=== PATIENT | male | born 1965 | race Caucasian/White ===

== ENCOUNTER → 2021-09-17 | Outpatient (CLI) | payer OTHER | LOC: LAB 18:31 | DX: Z20.822 Contact with and (suspected) exposure to COVID-19 (principal) ==

== ENCOUNTER → 2024-03-28 | Day surgery (SDC) | payer OTHER ==
[~2024-03-28] MED LIST: Lidocaine PF 2% (20 MG/ML) 2 ML VIAL ONE
== END | disposition home or self-care (01) ==
LOC: MSO 07-13 10:53
DX: Z12.11 Encounter for screening for malignant neoplasm of colon (principal)
CPT/HCPCS: 00812; J2704; J7120

== ENCOUNTER 2024-09-19 21:03 | Observation (INO) | payer OTHER ==
[~2024-09-19] VITALS: Ht 190.5 cm; Wt 134.5 kg
[2024-09-19] MEDS ORDERED: SIMVASTATIN20 M1 PO (21:35)
[2024-09-19 21:59] LABS: ALBUMIN 4.3 g/dL (3.5-5.0); BASO # 0.04 K/mm3 (0.02-0.10); EOS # 0.18 K/mm3 (0.04-0.40); EOS % 2.2 % (0.0-4.0); HEMATOCRIT 48.4 % (42.0-52.0); HEMOGLOBIN 15.7 g/dL (13.5-18.0); LYMPH# 1.29 K/mm3 (1.50-4.00); MEAN CELL VOLUME 91 fl (78-100); MEAN CORPUSCULAR HEMOGLOBIN 29 pg (27-31); MEAN CORPUSCULAR HGB CONC 32 g/dL (33-37); MEAN PLATELET VOLUME 9.8 fl (7.4-10.4); MONO # 0.68 K/mm3 (0.20-0.80); NEU # 6.01 K/mm3 (1.40-6.50); PLATELET COUNT 288 K/mm3 (130-400); RED BLOOD COUNT 5.35 M/mm3 (4.20-5.60); RED CELL DISTRIBUTION WIDTH 12.8 % (11.5-14.5); WHITE BLOOD COUNT 8.2 K/mm3 (4.8-10.8)
[2024-09-19 22:00] LABS: CALCIUM 9.8 mg/dL (8.3-10.5)
[2024-09-19] MEDS ORDERED: NS 1,000 ML IV SCH (22:00)
[2024-09-19] MEDS ORDERED: cefTRIAXone 1 G in Water For Injection,Sterile 10 ML IV SCH (22:00)
[2024-09-19 22:03] LABS: TOTAL BILIRUBIN 0.7 mg/dL (0.2-1.2)
[2024-09-19] MEDS ORDERED: Ibuprofen 200 MG TAB PO PRN (22:15)
[2024-09-19] MEDS ORDERED: fentaNYL 100 MCG/2 ML VIAL IV PRN (22:15)
[2024-09-19] MEDS ORDERED: Morphine 4 MG/ML VIAL IV PRN (22:45)
[2024-09-19] MEDS ORDERED: Vancomycin 2 G in NS 500 ML IV ONE (22:45)
[2024-09-19 23:53] VITALS: BP 127/74
[2024-09-20 03:17] VITALS: BP 138/87
[2024-09-20 06:23] LABS: BASO # 0.03 K/mm3 (0.02-0.10); EOS # 0.17 K/mm3 (0.04-0.40); EOS % 1.9 % (0.0-4.0); HEMATOCRIT 42.4 % (42.0-52.0); HEMOGLOBIN 13.9 g/dL (13.5-18.0); LYMPH# 1.15 K/mm3 (1.50-4.00); MEAN CELL VOLUME 92 fl (78-100); MEAN CORPUSCULAR HEMOGLOBIN 30 pg (27-31); MEAN CORPUSCULAR HGB CONC 33 g/dL (33-37); MEAN PLATELET VOLUME 9.9 fl (7.4-10.4); MONO # 0.78 K/mm3 (0.20-0.80); NEU # 6.83 K/mm3 (1.40-6.50); PLATELET COUNT 255 K/mm3 (130-400); RED BLOOD COUNT 4.63 M/mm3 (4.20-5.60)
[2024-09-20 06:36] LABS: ALBUMIN 3.7 g/dL (3.5-5.0)
[2024-09-20 06:41] LABS: TOTAL BILIRUBIN 0.8 mg/dL (0.2-1.2)
[2024-09-20 07:30] VITALS: BP 145/89
[2024-09-20] MEDS ORDERED: HYDROcodone/Acetaminophen 7.5-325 MG TAB PO PRN (08:00)
[2024-09-20] MEDS ORDERED: oxyCODONE/Acetaminophen 5-325 MG TAB PO PRN (08:00)
[2024-09-20] MEDS ORDERED: Ketorolac 30 MG/ML VIAL IV SCH ×2 (08:18→15:25)
[2024-09-20] MEDS ORDERED: NS IV SCH (09:00)
[2024-09-20] MEDS ORDERED: VANCOMYCIN HCL IV SCH (09:00)
[2024-09-20 15:10] VITALS: BP 134/84
[2024-09-20 20:08] VITALS: BP 137/87
[2024-09-20] MEDS ORDERED: cefTRIAXone 1 G in Water For Injection,Sterile 10 ML IV SCH (21:00)
[2024-09-20 23:00] VITALS: BP 115/71
[2024-09-21 03:52] VITALS: BP 129/78
[2024-09-21 06:15] LABS: BASO # 0.04 K/mm3 (0.02-0.10); EOS # 0.25 K/mm3 (0.04-0.40); EOS % 3.4 % (0.0-4.0); HEMATOCRIT 42.4 % (42.0-52.0); HEMOGLOBIN 13.9 g/dL (13.5-18.0); LYMPH# 1.06 K/mm3 (1.50-4.00); MEAN CELL VOLUME 92 fl (78-100); MEAN CORPUSCULAR HEMOGLOBIN 30 pg (27-31); MEAN CORPUSCULAR HGB CONC 33 g/dL (33-37); MEAN PLATELET VOLUME 9.8 fl (7.4-10.4); MONO # 0.71 K/mm3 (0.20-0.80); PLATELET COUNT 237 K/mm3 (130-400); RED BLOOD COUNT 4.63 M/mm3 (4.20-5.60); RED CELL DISTRIBUTION WIDTH 12.9 % (11.5-14.5); WHITE BLOOD COUNT 7.3 K/mm3 (4.8-10.8)
[2024-09-21 06:24] LABS: ALBUMIN 3.5 g/dL (3.5-5.0)
[2024-09-21 06:26] LABS: CALCIUM 8.9 mg/dL (8.3-10.5)
[2024-09-21 06:27] LABS: TOTAL PROTEIN 5.6 g/dL (6.4-8.3)
[2024-09-21 06:29] LABS: TOTAL BILIRUBIN 0.8 mg/dL (0.2-1.2)
[2024-09-21 07:27] VITALS: BP 128/76
[2024-09-21] MEDS ORDERED: Sulfamethoxazole/Trimethoprim 800-160 MG TAB PO SCH (09:00)
[2024-09-21] MEDS ORDERED: Acetaminophen 325 MG TAB PO PRN (09:45)
[2024-09-21 11:03] VITALS: BP 132/78; BP_SYST 131
[2024-09-21 14:57] VITALS: BP 130/80
[2024-09-21] MEDS ORDERED: Clindamycin 150 MG CAP PO SCH (17:57)
[2024-09-21] MEDS ORDERED: Bisacodyl 5 MG TAB PO SCH (19:19)
[2024-09-21 19:25] VITALS: BP 132/73
[2024-09-21] MEDS ORDERED: Ketorolac 30 MG/ML VIAL IV PRN (22:30)
[2024-09-21 23:14] VITALS: BP 135/89
[2024-09-22 03:00] VITALS: BP 131/84
[2024-09-22 05:38] LABS: BASO # 0.04 K/mm3 (0.02-0.10); EOS # 0.29 K/mm3 (0.04-0.40); EOS % 4.2 % (0.0-4.0); HEMATOCRIT 42.6 % (42.0-52.0); HEMOGLOBIN 13.9 g/dL (13.5-18.0); LYMPH# 1.34 K/mm3 (1.50-4.00); MEAN CELL VOLUME 93 fl (78-100); MEAN CORPUSCULAR HEMOGLOBIN 30 pg (27-31); MEAN CORPUSCULAR HGB CONC 33 g/dL (33-37); MEAN PLATELET VOLUME 9.4 fl (7.4-10.4); MONO # 0.67 K/mm3 (0.20-0.80); PLATELET COUNT 273 K/mm3 (130-400); RED BLOOD COUNT 4.59 M/mm3 (4.20-5.60); RED CELL DISTRIBUTION WIDTH 12.7 % (11.5-14.5); WHITE BLOOD COUNT 6.9 K/mm3 (4.8-10.8)
[2024-09-22 05:48] LABS: CALCIUM 9.2 mg/dL (8.3-10.5)
[2024-09-22 05:50] LABS: ALBUMIN 3.6 g/dL (3.5-5.0)
[2024-09-22 05:53] LABS: TOTAL PROTEIN 6.2 g/dL (6.4-8.3)
[2024-09-22 05:55] LABS: TOTAL BILIRUBIN 0.6 mg/dL (0.2-1.2)
[2024-09-22 07:50] VITALS: BP 129/88
[2024-09-22] MEDS ORDERED: Ketorolac 10 MG TAB PO PRN (10:00)
[2024-09-22 10:49] VITALS: BP 127/86
[2024-09-22] MEDS ORDERED: KETOROLAC10 MG PO (15:06)
[2024-09-22] MEDS ORDERED: CLEOCIN HCL300 MG PO (15:06)
[2024-09-22 15:19] VITALS: BP 139/97
== END 2024-09-22 15:25 | disposition home or self-care (01) ==
LOC: ED 21:03 → MED/SURG 21:43
PROVIDERS: Family Medicine; ADMIT Physician Assistant
DX: L03.114 Cellulitis of left upper limb (principal); E78.5 Hyperlipidemia, unspecified; Z79.899 Other long term (current) drug therapy
CPT/HCPCS: G0378; J0696; J1885; J2270; J3010; J3370; J7030; J7040; J7050